=== PATIENT | female | born 1945 | race Caucasian/White ===

== ENCOUNTER 2017-05-27 19:42 | Inpatient (IN) | payer MEDICARE, OTHER ==
[~2017-05-27] VITALS: Ht 162.6 cm; Wt 61.7 kg
[2017-05-27 20:00] VITALS: BP 155/74
[2017-05-27 21:22] LABS: HEMOGLOBIN 12.8 gm/dL (12.0-15.0); MCH 34.2 pg (26.0-34.0); MCHC 33.7 g/dL (28.0-37.0); MCV 101.3 fL (80.0-100.0); MPV 7.4 fl. (7.2-11.1); RBC 3.75 mil/uL (4.20-5.00); RDW-CV 14.3 % (10.5-14.5); WBC 9.6 thou/uL (4.0-11.0)
[2017-05-27 21:32] LABS: INR 1.1; PROTIME 10.6 Seconds (9.20-11.50)
[2017-05-27 21:36] LABS: ALBUMIN 3.5 g/dL (3.4-5.0); CALCIUM 8.5 mg/dL (8.5-10.1); CREATININE 0.7 mg/dL (0.6-1.3); POTASSIUM 3.2 mmol/L (3.5-5.1); TOTAL BILIRUBIN 0.6 mg/dL (<0.1-1.0); TOTAL PROTEIN 6.7 g/dL (6.4-8.2)
[2017-05-28] VITALS: BP 172/72
[2017-05-28 04:00] VITALS: BP 168/69
[2017-05-28 04:10] LABS: ABSOLUTE EOSINOPHILS 0.2 thou/uL (0.0-0.7); ABSOLUTE LYMPHOCYTES 1.3 thou/uL (0.8-5.3); ABSOLUTE MONOCYTES 0.7 thou/uL (0.0-1.2); ABSOLUTE NEUTROPHILS 5.3 thou/uL (1.6-8.1); BASOPHILS 0.4 %; EOSINOPHILS 2.3 %; HEMATOCRIT 35.1 % (37.0-47.0); LYMPHOCYTES 17.3 %; MCH 34.2 pg (26.0-34.0); MCHC 34.2 g/dL (28.0-37.0); MCV 100.2 fL (80.0-100.0); MPV 7.5 fl. (7.2-11.1); NUCLEATED RBCS 0 /100WBC; PLATELET COUNT* 195 thou/uL (150-400); RDW-CV 14.1 % (10.5-14.5); WBC 7.5 thou/uL (4.0-11.0)
[2017-05-28 04:24] LABS: CALCIUM 8.2 mg/dL (8.5-10.1); CREATININE 0.8 mg/dL (0.6-1.3); POTASSIUM 3.5 mmol/L (3.5-5.1)
--- NOTE | 2017-05-28 05:47 | NUR ---
PATIENT RECEIVED TO HOSPITAL UNIT AT APPROXIMATELY 2000 VIA AMBULANCE FROM [place], [place]. PATIENT ACCOMPANIED BY 2 EMT STAFF, HER SPOUSE, AND HER NEICE. PATIENT PAIN WAS AT 8-9/10 ON PAIN SCALE WHEN SHE ARRIVED. PATIENT A/O X 4 AND VSS AND WITHOUT HTN. PATIENT GIVEN FENTANYL X 3 DURING OVERNIGHT SHIFT FOR PAIN THAT IS LOCATED IN HER LEFT HIP AND LEFT GROIN. PATIENT VERBALIZES THAT SHE ONLY RECEIVES PARTIAL PAIN RELIEF OF APPROX. AN 8/10 ON PAIN SCALE WITH PAIN MEDICATION. PATIENT CONTINUES TO BE NPO AFTER MIDNIGHT LAST NIGHT AND HAS REQUESTED ZOFRAN ONCE DURING EVENING FOR NAUSEA. PATIENT REQUESTS THAT HER CONSTIPATION BE ADDRESSED D/T THE FACT THAT IT CAN BECOME AN IMPACTION WITH ONLY STOOL SOFTENER ADMINISTRATION WHEN SHE TAKES NARCOTICS FOR PAIN. UPON ARRIVAL TO THE UNIT, PATIENT WAS ACCLIMATED TO THE ROOM AND THE CALL LIGHT. NURSING TO FOLLOW-UP NECESSARY. ALL FALL PRECAUTIONS IN PLACE, INCLUDING CALL LIGHT WITHIN REACH. WILL CONTINUE TO MONITOR CLOSELY.
[2017-05-28 08:00] VITALS: BP 148/62
[2017-05-28] MEDS ORDERED: CARVEDILOL12.5 MG PO (08:38)
[2017-05-28] MEDS ORDERED: SYNTHROID150 MCG PO (08:40)
[2017-05-28] MEDS ORDERED: PREDNISONE 5 MG5 M1 PO (08:41)
[2017-05-28] MEDS ORDERED: LISINOPRIL2.5 MG PO (08:41)
[2017-05-28] MEDS ORDERED: TRAMADOL 50 MG50 MG PO (08:42)
[2017-05-28 08:59] LABS: URINE BILIRUBIN NEGATIVE (Negative); URINE BLOOD 3+ (Negative); URINE CLARITY CLEAR; URINE COLOR YELLOW; URINE GLUCOSE-RANDOM TRACE (Negative); URINE KETONES NEGATIVE (Negative); URINE LEUKOCYTES-REFLEX NEGATIVE (Negative); URINE NITRITE-REFLEX NEGATIVE (Negative); URINE PROTEIN NEGATIVE (Negative); URINE UROBILINOGEN 0.2 E.U./dl (0.2-1.0)
[2017-05-28 09:12] LABS: BACTERIA-REFLEX 1-9 Few /HPF (None Seen); CASTS None Seen /LPF (None Seen); MUCUS 0-3 Light strn/LPF (None Seen); SQUAMOUS 0-3 Few /LPF (0-3); URINE RBC 3-10 Few /HPF (0-2); URINE WBC-REFLEX 0-5 Rare /HPF (0-5)
[2017-05-28 09:13] LABS: AMORPHOUS PHOSPHATES Moderate /LPF (None Seen)
--- NOTE | 2017-05-28 13:20 | 2DMMODE ---
[place] [address] 2 D/M-MODE ECHOCARDIOGRAM Name: LILIANKENNA Room: [address] IN [facility]#: [id number] Admission: 05/27/17 Attend Phys: Salomon Webb, Discharge: Date of : 43 Date of Service: 05/28/17 1319 Report #: [id number] THIS REPORT FOR: //name// APPROVED REPORT Study performed: 05/28/2017 09:54:03 EXAM: Comprehensive 2D, Doppler, and color-flow Echocardiogram Patient Location: In-Patient Room #: [facility] Status: routine BSA: 1.66 HR: 77 bpm BP: 148/62 mmHg Rhythm: NSR Other Information Study Quality: Good Indications Pre-Op Cardiomyopathy 2D Dimensions LVEF(%): 61.06 (>50%) IVSd: 10.26 (7-11mm) LVOT Diam: 23.67 (18-24mm) LVDd: 44.97 mm PWd: 10.98 (7-11mm) Ascending Ao: 32.25 (22-36mm) LVDs: 30.33 (25-40mm) Aortic Root: 31.29 mm Tierney's LVEF: 61.06 % Volumes Left Atrial Volume (Systole) LA ESV Index: 26.10 mL/m2 Aortic Valve AoV Peak Zeferino.: 1.47 m/s AO Peak Gr.: 8.60 mmHg LVOT Max P.75 mmHg AO Mean Gr.: 4.43 mmHg LVOT Mean P.86 mmHg LVOT Max V: 1.09 m/s AO V2 VTI: 28.08 cm LVOT Mean V: 0.60 m/s HARMAN (VTI): 3.55 cm2 LVOT V1 VTI: 22.65 cm AI [place]: 3.68 m/s2 AI PHT: 360.39 [place] [address] 2 D/M-MODE ECHOCARDIOGRAM Name: KENNA QUINTANA Room: [address] IN .R.#: [id number] Admission: 05/27/17 Attend Phys: Salomon Webb, Discharge: Date of : 43 Date of Service: 05/28/17 1319 Report #: [id number] Mitral Valve E/A Ratio: 0.85 MV Decel. Time: 268.19 ms MV E Max Zeferino.: 0.63 m/s MV PHT: 77.77 ms MVA (PHT): 2.83 cm2 TDI E/Lateral E': 6.30 E/Medial E': 7.00 Medial E' Zeferino.: 0.09 m/s Lateral E' Zeferino.: 0.10 m/s Pulmonary Valve PV Peak Zeferino.: 0.98 m/s PV Peak Gr.: 3.85 mmHg Tricuspid Valve TR Peak Gr.: 27.65 mmHg RVSP: 32.00 mmHg Left Ventricle The left ventricle is normal size. There is normal LV segmental wall motion. Mild concentric left ventricular hypertrophy. Left ventricular systolic function is normal. The left ventricular ejection fraction is within the normal range. LVEF is 60-65%. Grade I - abnormal relaxation pattern. Right Ventricle The right ventricle is normal size. The right ventricular systolic function is normal. Atria The left atrium size is normal. The right atrium size is normal. Aortic Valve The aortic valve is normal in structure. Mild aortic regurgitation. There is no aortic valvular stenosis. Mitral Valve The mitral valve flattens with systole but no prolapse is present. Trace mitral regurgitation. No evidence of mitral valve stenosis. Tricuspid Valve The tricuspid valve is normal in structure. Mild tricuspid regurgitation. The RVSP is 30-[place] [address] 2 D/M-MODE ECHOCARDIOGRAM Name: KENNA QUINTANA Room: [address] IN .R.#: [id number] Admission: 05/27/17 Attend Phys: Salomon Webb, Discharge: Date of : 43 Date of Service: 05/28/17 1319 Report #: [id number] Pulmonic Valve The pulmonary valve is normal in structure. Mild pulmonic regurgitation. Great Vessels The aortic root is normal in size. IVC is normal in size and collapses with >50% inspiration Pericardium There is no pericardial effusion. <Conclusion> LVEF is 60-65%. There is normal LV segmental wall motion. Grade I - abnormal relaxation pattern. There is no aortic valvular stenosis. Mild aortic regurgitation. Trace mitral regurgitation. Mild concentric left ventricular hypertrophy. <ELECTRONICALLY SIGNED> By: Melvin Grant MD, FACC 05/28/17 1319 18 18 Melvin Grant MD, FACC /INF
--- NOTE | 2017-05-28 15:28 | EKG ---
[place] [address] ELECTROCARDIOGRAM REPORT Name: SHRUTHIALYSAKENNA MCCOY Room: [address] ADM IN M.R.#: [id number] Admission: 05/27/17 Attend Phys: Salomon Webb MD Discharge: Date of : 43 Report #: [id number] THIS REPORT FOR: //name// [facility] Test Date: 2017-05-28 Test Time: 09:52:41 Pat Name: KENNA QUINTANA Department: Room: [address] Gender: F Tax Advisor: : 1945 Requested By: Salomon Webb Order Number: [id number] Reading MD: Melvin Grant Measurements Intervals [place] Rate: 78 P: 38 VT: 130 QRS: -3 QRSD: 94 T: 34 QT: 413 QTc: 471 Interpretive Statements Sinus rhythm No previous ECG available for comparison Electronically Signed On 05-28-2017 15:28:01 MEDICAL CHEMIST by Melvin Grant [email or web address] <ELECTRONICALLY SIGNED> By: Melvin Grant MD, [facility] 05/28/17 1528 Melvin Grant MD, FAC /EPI
[2017-05-28 16:04] VITALS: BP 148/62
--- NOTE | 2017-05-28 16:08 | NUR ---
SPOKE WITH PT. SHE WAS ALERT AND ORIENTED. SHE SAID SHE WAS FEELING NAUSEOUS BUT NURSE AWARE. PT.STATED SHE LIVES WITH HER . SHE HOPES SHE GETS SURGERY TONIGHT AND DOESN'T HAVE TO WAIT UNTIL TOMORROW. SHE WOULD LIKE TO GO TO [facility]ED UNIT WHEN READY FOR DISCHARGE. ATTEMPTED TO CALL WELFARE ELIGIBILITY INTERVIEWER AT SWING BED [phone] TO MAKE REFERRAL. STAFF SAID SHE WAS GONE FOR THE DAY AND DID NOT HAVE VM ON. WILL MAKE REFERRAL ON WEDNESDAY NO OP REPORT OR THERAPIES YET.
--- NOTE | 2017-05-28 17:57 | NUR ---
ASSUMED CARE OF PATIENT AFTER MORNING REPORT. ALERT AND ORIENTED X4. ASSESSMENT COMPLETED AND IS CHARTED. VSS ON ROOM AIR. PATIENTS PAIN AND NAUSEA HAVE BEEN MANAGED WITH MEDICATION. PATIENT LEFT UNIT FOR PACU AT APPROXIMATELY 1600. HOURLY ROUNDS WERE MAINTAINED WHILE PATIENT WA ON THE UNIT. WHEN PATIENT RETURNS FROM PACU NURSING WILL CONTINUE TO MONITOR.
[2017-05-28 20:00] VITALS: BP 154/71
[2017-05-29 01:21] VITALS: BP 104/55
[2017-05-29 04:12] LABS: HEMATOCRIT 32.3 % (37.0-47.0)
[2017-05-29 04:15] VITALS: BP 100/48
--- NOTE | 2017-05-29 07:51 | NUR ---
THIS NURSE ASSUMES CARE OF PT 05/28/17 AT 1930, PT IS ALERT AND ORIENTED X4, PT IN PLEASANT MOOD, EXPRESSES THAT SHE IS READY TO GO HOME, LUNGS CTA WITH SOME COARSENESS TO LEFT LUNG VIZCARRA NOTED, PT REPORTS LOOSE COUGH WITH SMALL AMOUNT OF YELLOW SPUTUM STILL OCURRING, PT IS AFEBRILE, CONTINUES TREATMENT FOR THRUSH, REPORTS THAT IS HARD TO CATCH HER BREATH SOMETIMES EVEN AT REST SHE SAYS THE BREATHING TREATMENTS HELP, PT UP WITH STAND BY ASSIST, STEADY GAIT, CONTINUES IV FLUIDS, REPORTED TO NATHEN
--- NOTE | 2017-05-29 07:55 | NUR ---
THIS NURSE ASSUMES CARE OF PT 05/28/17 AT 1930, PT RETURNS FROM SURGERY ALERT AND ORIENTED X4, DRESSING TO LLE DRY AND INTACT, PT DENIES NAUSEA, EATS SNACK WITHOUT DIFFICULTY, PT RECIEVES HS MEDS AND LAXATIVE, PTS PAIN CONTROLLED WITH PO MEDS THROUGHOUT THE NIGHT, PT DID NOT GET OUT OF BED THIS SHIFT, THIS AM PTS BLOOD PRESSURE 90S/40S, MANUAL BP 104/46, DR MENSAH NOTIFIED, FLUID BOLUS ORDERED, REPORTED TO NATHEN HOLLAND
[2017-05-29 08:40] VITALS: BP 150/51
[2017-05-29 17:13] VITALS: BP 146/79
--- NOTE | 2017-05-29 17:34 | NUR ---
ASSUMED CARE OF PATIENT AFTER REPORT THIS MORNING. PATIENT AWAKE, ALERT, AND ORIENTED APPROPRIATELY. CRYING FROM PAIN. PHYSICAL ASSESSMENT COMPLETED AND CHARTED. GIVEN PRN AND SCHEDULED MEDICATIONS, SEE EMAR FOR DOCUMENTATION. VITAL SIGNS STABLE, OXYGEN SATURATION WITHIN NORMAL LIMITS ON ROOM AIR. PATIENT WORKED WITH PHYSICAL THERAPY TODAY. SAT IN CHAIR AT BEDSIDE THIS AFTERNOON. SITTING IN CHAIR AT BEDSIDE AT THIS TIME. USES BEDSIDE COMMODE. TRANSFERS AND AMBULATES WITH ASSISTANCE FROM STAFF. DENIES NEEDS AT THIS TIME. CALL LIGHT WITHIN REACH, USES APPROPRIATELY. NURSING WILL CONTINUE TO MONITOR.
[2017-05-29 20:00] VITALS: BP 161/63
[2017-05-30 00:38] VITALS: BP 142/49
[2017-05-30 04:10] LABS: HEMATOCRIT 28.9 % (37.0-47.0); HEMOGLOBIN 9.7 gm/dL (12.0-15.0)
[2017-05-30 04:52] VITALS: BP 136/52
--- NOTE | 2017-05-30 04:56 | NUR ---
PATIENT ORIENTED X4 ON HOURLY ROUNDS. PAIN CONTROLLED WITH OXY IR AND YEN TRAMADOL. DRESSING TO LEFT HIP CLEAN, DRY AND INTACT. UP WITH ASSIST X1 TO BSC. VITALS STABLE ON ROOM AIR. WILL CONTINUE TO MONITOR.
[2017-05-30 08:00] VITALS: BP 144/68
--- NOTE | 2017-05-30 17:02 | NUR ---
PATIENT REMAINS ALERT AND ORIENTED. TRANSFERS AND AMBULATES WITH ASSIST OF 1. ENEMA THIS EVENING FOR CONSTIPATION. PATIENT STILL HAD TO BE DISEMPACTED DESPITE THE ENEMA, AND LARGE AMOUNT OF STOOL REMOVED. PAIN CONTROLLED ON PO MEDS IV SALINE LOCKED. TOLERATING MEALS. PARTICIPATED WITH THERAPY. BED ALARM IN USE. CALL LIGHT WITHIN REACH. WILL CONTINUE TO MONITOR.
[2017-05-30 18:02] VITALS: BP 141/58
[2017-05-30 20:00] VITALS: BP 125/62
[2017-05-31 01:07] VITALS: BP 108/37
[2017-05-31 04:56] VITALS: BP 133/52
--- NOTE | 2017-05-31 05:39 | NUR ---
PATIENT ORIENTED X4 ON HOURLY ROUNDS. UP WITH ASSIST X1. TOLERATING DIET. DENIES NAUSEA. DRESSING TO LEFT HIP IS DRY AND INTACT. VITALS STABLE ON ROOM AIR. NO BM THIS SHIFT. CONTINUE TO MONITOR.
[2017-05-31 09:04] VITALS: BP 128/62
[2017-05-31] MEDS ORDERED: DULCOLAX5 MG PO (09:48)
[2017-05-31] MEDS ORDERED: FLEET ENEMA133 ML RECTAL (09:49)
[2017-05-31] MEDS ORDERED: ELIQUIS2.5 MG PO (09:49)
[2017-05-31] MEDS ORDERED: MIRALAX17 GM PO (09:50)
[2017-05-31] MEDS ORDERED: OXYCODONE HCL5 M1 PO (09:52)
[2017-05-31 09:53] VITALS: BP 128/62
--- NOTE | 2017-05-31 10:14 | NUR ---
CM CONTACTED [facility] SW[facility]ED UNIT AND SPOKE TO ZACK TO INFORM OF THE REFERRAL FOR SWING BED, AND FAXED PATIENTS FACESHEET, H&P, MED LIST, PT/OT NOTES, AND LABS. CM SPOKE TO THE PATIENT TO INFORM OF THIS AND THAT CM WOULD FOLLOW-UP WHEN MORE INFO IS AVAILABLE. CM WILL REMAIN AVAILABLE TO ASSIST AND FOLLOW NEEDED.
--- NOTE | 2017-05-31 11:57 | NUR ---
REPORT CALLED TO DAINA AT [facility].
--- NOTE | 2017-05-31 13:13 | NUR ---
PATIENT DISCHARGED TO [facility] BED. IV REMOVED. COPY OF DC INSTRUCTIONS SENT WITH PATIENT. REPORT CALLED. AWARE OF TRANSFER. TRANSPORTED VIA WHEELCHAIR VAN.
--- NOTE | 2017-06-01 09:46 | CON ---
[address] [address] CONSULTATION Name: KENNA QUINTANA Room: [address] IN M.R.#: [id number] Admission: 05/27/17 Attend Phys: Salomon Webb MD Discharge: 05/31/17 Date of : 43 Report #: [id number] THIS REPORT FOR: //name// CC: Salomon WEEMS REQUESTING PHYSICIAN: Salomon Webb MD PRIMARY CARE PHYSICIAN: Dr. Dias, [facility] and Dr. Weems. CHIEF COMPLAINT: Hip fracture. HISTORY OF PRESENT ILLNESS: The patient is a 72-year-old woman who fell down going down the steps and fractured her left hip. She is being seen for evaluation and preoperative status. She has a remote history of cardiomyopathy. Clinically, she denies chest pain or pressure. Her fall was not precipitated by palpitations, dizziness, or presyncope. She does have a history of connective tissue disease without apparent vascular involvement, though carries a diagnosis of cardiomyopathy. An echocardiogram was performed earlier this morning, which demonstrated preserved LV function. Clinically, from a heart failure standpoint, she denies shortness of breath, orthopnea or PND. She has not had any hospitalizations for congestive heart failure, coronary artery disease or other vascular etiologies. She has no neuro symptoms, slurred speech, numbness or weakness or visual changes. PAST MEDICAL HISTORY: Significant for Marialuisa's disease and cardiomyopathy. She was treated aggressively with beta blockers and still remains on carvedilol. She has no documented history of vascular involvement with regard to her connective tissue disease, she has never had stroke, TIA, NV or peripheral vascular disease. PAST SURGICAL HISTORY: Thyroidectomy, 2 C-sections, and has fractured her right hip. FAMILY HISTORY: Positive for heart disease. Maternally, her mother has had a heart attack. She herself has had a stress test at the time of her cardiomyopathy diagnosis, which was normal. There is no family history of sudden . SOCIAL HISTORY: She is . There is no tobacco or ethanol history. CURRENT MEDICATIONS: Include the following: Lisinopril 2.5 mg daily, prednisone 5 mg daily, ceftriaxone, Synthroid 0.125 mg daily and Coreg 12.5 [place] [address] CONSULTATION Name: KENNA QUINTANA Room: [address]#: [id number] Admission: 05/27/17 Attend Phys: Salomon Webb MD Discharge: 05/31/17 Date of : 43 Report #: [id number] SOCIAL HISTORY: She is . There is no tobacco or ethanol history. REVIEW OF SYSTEMS: CENTRAL NERVOUS SYSTEM: No seizure or paralysis. GENERAL: No weight loss or fevers. RESPIRATORY: No cough or sputum production. No asthma or emphysema. CARDIOVASCULAR: No palpitations, no chest discomfort, no orthopnea, no PND. PERIPHERAL ARTERY DISEASE: Denies history of carotid vascular disease, claudication, numbness or weakness. GASTROINTESTINAL: No vomiting, vomiting blood or ulcers. GENITOURINARY: No dysuria or hematuria. HEMATOLOGIC: No anemia or bleeding disorders. ALLERGIES: No seasonal, medical, aspirin or contrast allergies. PSYCHIATRIC: No depression or anxiety. MUSCULOSKELETAL: No arthritis. Positive connective tissue disease. EYES: She does use glasses. No visual changes. PHYSICAL EXAMINATION: VITAL SIGNS: Blood pressure is 148/62, pulse is 85. GENERAL: This is a pleasant elderly female. She is alert, oriented, in no apparent distress. NECK: Supple. No jugular venous distention. CARDIOVASCULAR: Irregular. There is no murmur or S3. LUNGS: Clear to auscultation. ABDOMEN: Soft, nontender. EXTREMITIES: There is no peripheral edema. Electrocardiogram demonstrates a sinus rhythm, normal ST segments, rate of 78. Hemoglobin is 12.0, white blood cell count 7.5, platelet count is 195,000. Sodium is 144, potassium 3.5, chloride 107, BUN is 14, and creatinine is 0.8. IMPRESSION: 1. Preoperative evaluation. She has a functional history of probably 5-6 mets and reports no angina type symptoms and no documented history of coronary artery disease and in the past, has had negative stress testing with the workup of her cardiomyopathy. I do not see the need for any further testing. I would estimate her cardiovascular risk to be low. 2. Cardiomyopathy. Her left ventricular function has normalized and she is on aggressive medical therapy. I made no changes. 3. Hypertension, stable. 4. Hip fracture. 5. Marialuisa's disease. At this point in time, it appears that she does not have any vascular involvement. [address] [address] CONSULTATION Name: KENNA QUINTANA Room: [address] IN M.R.#: [id number] Admission: 05/27/17 Attend Phys: Salomon Webb MD Discharge: 05/31/17 Date of : 43 Report #: [id number] Thank you for allowing me to participate in her care. She will routinely follow up with her usual leg man. <ELECTRONICALLY SIGNED> By: Melvin Grant MD, FACC 06/01/17 0946 1032 [id number] Grant MD, FACC /nt
--- NOTE | 2017-06-02 06:51 | OP ---
[address] [address] OPERATIVE REPORT Name: KENNA QUINTANA Room: [address] IN M.R.#: [id number] Admission: 05/27/17 Attend Phys: Salomon Webb MD Discharge: 05/31/17 Date of : 43 Report #: [id number] THIS REPORT FOR: //name// CC: Salomon VERDUZCO [place] DICTATED BY: Kuldeep Chavez DO DATE OF SERVICE: 05/28/2017 PREOPERATIVE DIAGNOSIS: Left minimally displaced valgus impacted subcapital femoral neck fracture. POSTOPERATIVE DIAGNOSIS: Left minimally displaced valgus impacted subcapital femoral neck fracture. PROCEDURE PERFORMED: Left open reduction and internal fixation of left femoral neck fracture with cannulated screws. OPERATIVE SURGEON: Abhilash Byrd DO CROSSING SUPERVISOR: Kuldeep Chavez DO PREOPERATIVE ANTIBIOTICS: 2 grams of Ancef given IV 30 minutes prior to incision. INDICATIONS: The patient is a pleasant 72-year-old female who unfortunately fell while she was ambulating downstairs at her children's house. She landed on her left hip, had immediate onset pain and inability to bear weight on the left lower extremity. She presented initially to [facility] where she was evaluated and determined to have a left femoral neck fracture. She was then transported to [facility] for further evaluation. We discussed indications of the left femoral neck fracture and stated that we would recommend open reduction and internal fixation with in situ pinning with cannulated screws. The patient is in full understanding and agrees with this plan. Therefore, all the risks, benefits, treatment options, alternatives, complications, indications were discussed with the patient. Risks including but not limited to neurovascular injury, continued pain, continued bleeding, need for repeat surgery, rhabdomyolysis, DVT, PE, as well as inherent complications of anesthesia. The patient assumed the risks and wanted to proceed with surgery. DESCRIPTION OF PROCEDURE: The patient was seen in the preoperative bay where consent was obtained and the operative site was marked with the initials of myself, Dr. Abhilash Byrd. The patient was then transported to the operative suite and given the benefit of general anesthesia. [place] [address] OPERATIVE REPORT Name: KENNA QUINTANA Room: [address]#: [id number] Admission: 05/27/17 Attend Phys: Salomon Webb MD Discharge: 05/31/17 Date of : 43 Report #: [id number] onto the [place] table with the left foot placed in the appropriate boot and leg beaulieu, and the right leg abducted and externally rotated to appropriate position not to sublux the patient's previous noel hip arthroplasty and was well padded. C-arm was then utilized and the femoral neck was deemed to be still in appropriate position to proceed with open reduction internal fixation with in situ pinning with cannulated screws. Then, the patient was sterilely prepped and draped in normal sterile fashion. After that, a timeout was had indicating appropriate patient, procedure to be performed, operative site, preoperative antibiotics, operative surgeon. All in attendance were in agreement. Therefore, incision was marked on the left hip and landmarks of the greater trochanter and inferior border of the neck were obtained utilizing C-arm and Steinmann pins. Incision was then made with a 10 blade scalpel through the level of subcutaneous tissue, then sharp dissection was carried out through the IT band. A cutler elevator was then used to free soft tissues from the lateral aspect of the femur. The first Steinmann pin was then inserted in the superior central portion of the femoral neck and deemed to be in appropriate position with C-arm. This was advanced to be in appropriate position with C-arm on both AP and lateral views. Next, the guide was then used to place the posterior inferior Steinmann pin and deemed to be in appropriate position with AP and lateral images. Lastly, the anterior inferior Steinmann pin was then placed using freehand technique. This was deemed to be in appropriate position on AP and lateral views as well. Opening reamer was then used for all 3 screws and then screws were measured and deemed for the superior screw to be 80 mm, posterior inferior screw to be 75 mm and anterior inferior screw to be 80 mm. Screws were then placed in sequential fashion and hand tightened. These were all deemed to be in appropriate position on AP and lateral views of the C-arm. Final radiographs were saved. Wound was then thoroughly irrigated with sterile saline and 0 Vicryl was used to approximate the IT band. The wound was then again thoroughly irrigated and then 2-0 Monocryl was then used in simple interrupted inverted fashion to approximate the skin. Then, a running 3-0 V-Loc was used in a subcuticular stitch followed by Dermabond. The wound was dressed with Mepilex. The patient was transported to the PACU in stable condition. <ELECTRONICALLY SIGNED> By: Abhilash Byrd DO 06/02/17 0651 [id number] [id number] Byrd DO /nt
== END 2017-05-31 13:00 | DRG 481 ==
LOC: M.ORTHSURG 19:42
PROVIDERS: Orthopaedic Surgery; ADMIT Internal Medicine
PROC: 0QS704Z Reposition Left Upper Femur with Internal Fixation Device, Open Approach (ICD-10-PCS; principal; 2017-05-28)
DX: S72.012A Unspecified intracapsular fracture of left femur, initial encounter for closed fracture (principal); I42.9 Cardiomyopathy, unspecified; A50.02 Early congenital syphilitic osteochondropathy; E89.0 Postprocedural hypothyroidism; I10 Essential (primary) hypertension; S90.31XA Contusion of right foot, initial encounter; S92.352A Displaced fracture of fifth metatarsal bone, left foot, initial encounter for closed fracture; Z79.899 Other long term (current) drug therapy; Z82.49 Family history of ischemic heart disease and other diseases of the circulatory system; W10.8XXA Fall (on) (from) other stairs and steps, initial encounter; Y93.89 Activity, other specified; Y92.89 Other specified places as the place of occurrence of the external cause; Y99.8 Other external cause status